=== PATIENT | female | born 1990 | race Two or more races ===

== ENCOUNTER 2017-07-10 12:01 | Emergency (ER) | payer BC ==
[~2017-07-10] VITALS: Ht 165.1 cm; Wt 63.5 kg
[2017-07-10 12:08] VITALS: BP 124/81
== END 2017-07-10 13:09 | disposition home or self-care (01) ==
LOC: ER 12:02
DX: S62.316A Displaced fracture of base of fifth metacarpal bone, right hand, initial encounter for closed fracture (principal); W22.01XA Walked into wall, initial encounter; Y93.89 Activity, other specified; Y92.89 Other specified places as the place of occurrence of the external cause; Y99.8 Other external cause status
CPT/HCPCS: 73130-TC; A4606; Z7610